=== PATIENT | female | born 1930 | race Caucasian/White ===

== ENCOUNTER 2019-09-12 21:11 | Inpatient (IN) ==
[2019-09-13] MEDS ORDERED: *HR* Heparin 5,000 UNIT/ML VIAL IVP PRN ×4 (00:49→10:55)
[2019-09-13] MEDS ORDERED: *HR* Heparin 5,000 UNIT/ML VIAL IVP ONE ×2 (00:49→10:55)
[2019-09-13] MEDS ORDERED: Heparin 25,000 UNIT/250 ML D5W 25,000 UNIT/250 ML IV.SOLN IVC SCH (01:15)
[2019-09-13 01:50] LABS: Hematocrit 34.9 % (35.3-44.9); Hemoglobin 11.7 g/dL (11.5-15.4); Mean Corpuscular HGB Conc 33.5 g/dL (31.6-35.5); Mean Corpuscular Volume 92.3 fL (83.0-100.0); Mean Platelet Volume 9.9 fL (9.4-12.4); Platelet Count 333 K/mcL (140-400); Red Blood Count 3.78 M/mcL (3.82-4.97); Red Cell Distribution Width 13.3 % (11.5-14.5); White Blood Count 11.3 K/mcL (4.3-11.1)
[2019-09-13 02:18] LABS: INR 1.1
[2019-09-13 02:19] LABS: Heparin anti-factor XA UFH < 0.04 IU/mL (0.30-0.70)
[2019-09-13] MEDS ORDERED: Naloxone 0.4 MG/ML INJ IVP PRN (02:26)
[2019-09-13 04:54] LABS: Basophils # 0.1 K/mcL (0.0-0.2); Eosinophils # 0.3 K/mcL (0.0-0.6); Eosinophils % 2.6 %; Hematocrit 35.4 % (35.3-44.9); Hemoglobin 11.6 g/dL (11.5-15.4); Immature Granulocytes % 0.4 % (0-4); Lymphocytes # 2.1 K/mcL (0.6-4.6); Lymphocytes % 21.4 %; Mean Corpuscular HGB Conc 32.8 g/dL (31.6-35.5); Mean Corpuscular Hemoglobin 30.1 pg (28.0-33.3); Mean Corpuscular Volume 91.7 fL (83.0-100.0); Mean Platelet Volume 9.3 fL (9.4-12.4); Monocytes # 1.1 K/mcL (0.0-1.3); Neutrophils # 6.3 K/mcL (1.6-8.9); Platelet Count 321 K/mcL (140-400); Red Blood Count 3.86 M/mcL (3.82-4.97); Red Cell Distribution Width 13.5 % (11.5-14.5); Segmented Neutrophils % 63.6 %; White Blood Count 9.8 K/mcL (4.3-11.1)
[2019-09-13 05:02] LABS: INR 1.1; Prothrombin Time 12.2 Seconds (9.4-12.1)
[2019-09-13 05:22] LABS: BUN/Creatinine Ratio 13 (6-26); Blood Urea Nitrogen 11 mg/dL (8-23); Calcium 8.7 mg/dL (8.6-10.3); Carbon Dioxide 32 mEq/L (23-29); Chloride 100 mEq/L (98-107); Chol/HDL Ratio 4.4 (0-4.9); Cholesterol 173 mg/dL (< 200); Glucose 116 mg/dL (70-105); HDL Cholesterol 39 mg/dL (40-59); LDL Cholesterol,Calculated 100 mg/dL (0-99); Magnesium 1.7 mg/dL (1.6-2.6); Osmolality,Calculated 286 (280-300); Phosphorous 3.3 mg/dL (2.7-4.5); Potassium 3.8 mEq/L (3.5-5.1); Sodium 138 mEq/L (136-145); Triglycerides 170 mg/dL (< 150); eGFR For African Americans > 60 (> 60); eGFR For Non-African Americans > 60 (> 60)
[2019-09-13] MEDS: Vancomycin Oral Soln 125 MG/2.5 ML UDC PO SCH ×4 (07:55→17:56)
[2019-09-13] MEDS ORDERED: Furosemide 20 MG/2 ML VIAL IVP SCH (09:00)
[2019-09-13] MEDS ORDERED: Perflutren Lipid Microsphere 1.3 ML in 0.9 % Sodium Chloride 8.7 ML IVP ONE (10:40)
[2019-09-13] MEDS ORDERED: Amiodarone Premix 150 MG/100 ML BAG IVPB ONE (10:53)
[2019-09-13] MEDS ORDERED: Amiodarone Premix 360 MG/200 ML BAG IVC ONE (10:53)
[2019-09-13] MEDS: Aspirin Enteric Coated 81 MG Tablet PO SCH (11:26)
[2019-09-13] MEDS: Ondansetron 4 MG/2 ML VIAL IVP PRN ×2 (13:11→23:16)
[2019-09-13] MEDS: Heparin 25,000 UNIT/250 ML D5W 25,000 UNIT/250 ML IV.SOLN IVC SCH (13:13)
[2019-09-13] MEDS: Furosemide 40 MG/4 ML VIAL IVP SCH ×2 (13:21→17:56)
[2019-09-13] MEDS: Amiodarone Premix 360 MG/200 ML BAG IVC SCH (20:29)
[2019-09-14] MEDS: Vancomycin Oral Soln 125 MG/2.5 ML UDC PO SCH ×4 (00:23→20:40)
[2019-09-14 02:30] LABS: Hematocrit 38.9 % (35.3-44.9); Hemoglobin 12.8 g/dL (11.5-15.4); Mean Corpuscular HGB Conc 32.9 g/dL (31.6-35.5); Mean Corpuscular Volume 94.2 fL (83.0-100.0); Platelet Count 334 K/mcL (140-400); Red Blood Count 4.13 M/mcL (3.82-4.97); Red Cell Distribution Width 13.7 % (11.5-14.5); White Blood Count 10.5 K/mcL (4.3-11.1)
[2019-09-14 02:49] LABS: BUN/Creatinine Ratio 9 (6-26); Blood Urea Nitrogen 9 mg/dL (8-23); Calcium 9.5 mg/dL (8.6-10.3); Carbon Dioxide 28 mEq/L (23-29); Chloride 99 mEq/L (98-107); Glucose 144 mg/dL (70-105); Osmolality,Calculated 283 (280-300); Potassium 3.9 mEq/L (3.5-5.1); Sodium 136 mEq/L (136-145); eGFR For African Americans > 60 (> 60); eGFR For Non-African Americans 54 (> 60)
[2019-09-14] MEDS: Amiodarone Premix 360 MG/200 ML BAG IVC SCH (08:03)
[2019-09-14] MEDS: Lactobacillus 1 EACH CAP.SPRINK PO SCH (08:05)
[2019-09-14] MEDS: Aspirin Enteric Coated 81 MG Tablet PO SCH (08:05)
[2019-09-14] MEDS: Furosemide 40 MG/4 ML VIAL IVP SCH ×2 (08:10→20:39)
[2019-09-14] MEDS ORDERED: *HR* Digoxin 0.5 MG/2 ML AMPUL IVP ONE (10:00)
[2019-09-14] MEDS: Metoprolol XL (24 HR) Succ 25 MG TAB.ER.24H PO SCH (10:16)
[2019-09-14] MEDS: Cholestyramine 4 GM POWD.PACK PO SCH (15:08)
[2019-09-14] MEDS: *HR* Digoxin 0.5 MG/2 ML AMPUL IVP SCH ×2 (15:28→22:19)
[2019-09-15] MEDS: Heparin 25,000 UNIT/250 ML D5W 25,000 UNIT/250 ML IV.SOLN IVC SCH ×2 (00:01→00:53)
[2019-09-15] MEDS: Vancomycin Oral Soln 125 MG/2.5 ML UDC PO SCH ×4 (00:53→20:09)
[2019-09-15] MEDS: Ondansetron 4 MG/2 ML VIAL IVP PRN (01:12)
[2019-09-15 06:52] LABS: Hematocrit 47.8 % (35.3-44.9); Mean Corpuscular HGB Conc 31.2 g/dL (31.6-35.5); Mean Corpuscular Volume 96.4 fL (83.0-100.0); Mean Platelet Volume 9.7 fL (9.4-12.4); Platelet Count 429 K/mcL (140-400); Red Blood Count 4.96 M/mcL (3.82-4.97); Red Cell Distribution Width 13.5 % (11.5-14.5); White Blood Count 11.2 K/mcL (4.3-11.1)
[2019-09-15 06:53] LABS: Hemoglobin 14.9 g/dL (11.5-15.4)
[2019-09-15 07:09] LABS: Calcium 10.1 mg/dL (8.6-10.3); Potassium 5.3 mEq/L (3.5-5.1)
[2019-09-15] MEDS: Cholestyramine 4 GM POWD.PACK PO SCH ×2 (07:46→16:00)
[2019-09-15] MEDS: Furosemide 40 MG/4 ML VIAL IVP SCH (07:48)
[2019-09-15] MEDS: Lactobacillus 1 EACH CAP.SPRINK PO SCH (08:46)
[2019-09-15] MEDS: Aspirin Enteric Coated 81 MG Tablet PO SCH (08:46)
[2019-09-15] MEDS: Metoprolol XL (24 HR) Succ 25 MG TAB.ER.24H PO SCH (08:46)
[2019-09-16 00:44] LABS: Hematocrit 44.3 % (35.3-44.9); Hemoglobin 13.8 g/dL (11.5-15.4); Mean Corpuscular HGB Conc 31.2 g/dL (31.6-35.5); Mean Corpuscular Hemoglobin 29.9 pg (28.0-33.3); Mean Corpuscular Volume 95.9 fL (83.0-100.0); Mean Platelet Volume 10.2 fL (9.4-12.4); Platelet Count 422 K/mcL (140-400); Red Blood Count 4.62 M/mcL (3.82-4.97); Red Cell Distribution Width 13.5 % (11.5-14.5); White Blood Count 12.9 K/mcL (4.3-11.1)
[2019-09-16] MEDS: Vancomycin Oral Soln 125 MG/2.5 ML UDC PO SCH ×5 (00:45→23:19)
[2019-09-16 00:58] LABS: Calcium 9.7 mg/dL (8.6-10.3)
[2019-09-16] MEDS: Cholestyramine 4 GM POWD.PACK PO SCH ×2 (07:48→15:30)
[2019-09-16] MEDS: Lactobacillus 1 EACH CAP.SPRINK PO SCH (07:54)
[2019-09-16] MEDS: Aspirin Enteric Coated 81 MG Tablet PO SCH (07:54)
[2019-09-16] MEDS: Metoprolol XL (24 HR) Succ 25 MG TAB.ER.24H PO SCH (07:54)
[2019-09-16] MEDS ORDERED: Furosemide 40 MG/4 ML VIAL IVP SCH (09:00)
[2019-09-16] MEDS ORDERED: Nitroglycerin 1,000 MCG/10 ML VIAL IV ONE (09:45)
[2019-09-16] MEDS ORDERED: *HR* Heparin 10,000 UNIT/10 ML VIAL ONE (09:45)
[2019-09-16] MEDS ORDERED: 0.9 % Sodium Chloride 1,000 ML ONE ×2 (09:45→10:06)
[2019-09-16] MEDS ORDERED: Heparin 1,000 UNITS/500 mL 500 ML ONE (09:45)
[2019-09-16] MEDS ORDERED: ISOVUE-370 200 ML INFUS..BTL ONE (09:45)
[2019-09-16] MEDS ORDERED: *HR* Midazolam HCl 2 MG/2 ML VIAL ONE (10:13)
[2019-09-16] MEDS: Apixaban 5 MG TABLET PO SCH (20:34)
[2019-09-17 00:56] LABS: Hematocrit 38.2 % (35.3-44.9); Hemoglobin 12.5 g/dL (11.5-15.4); Mean Corpuscular HGB Conc 32.7 g/dL (31.6-35.5); Mean Corpuscular Hemoglobin 30.9 pg (28.0-33.3); Mean Corpuscular Volume 94.6 fL (83.0-100.0); Mean Platelet Volume 9.6 fL (9.4-12.4); Platelet Count 320 K/mcL (140-400); Red Blood Count 4.04 M/mcL (3.82-4.97); Red Cell Distribution Width 13.5 % (11.5-14.5)
[2019-09-17 01:13] LABS: BUN/Creatinine Ratio 18 (6-26); Blood Urea Nitrogen 16 mg/dL (8-23); Calcium 9.3 mg/dL (8.6-10.3); Carbon Dioxide 23 mEq/L (23-29); Chloride 105 mEq/L (98-107); Glucose 103 mg/dL (70-105); Osmolality,Calculated 279 (280-300); Potassium 4.7 mEq/L (3.5-5.1); Sodium 134 mEq/L (136-145); eGFR For African Americans > 60 (> 60); eGFR For Non-African Americans > 60 (> 60)
[2019-09-17] MEDS: Vancomycin Oral Soln 125 MG/2.5 ML UDC PO SCH ×3 (06:20→19:02)
[2019-09-17] MEDS: Cholestyramine 4 GM POWD.PACK PO SCH ×2 (08:00→16:26)
[2019-09-17] MEDS: Apixaban 5 MG TABLET PO SCH ×2 (08:02→19:52)
[2019-09-17] MEDS: Lactobacillus 1 EACH CAP.SPRINK PO SCH (08:05)
[2019-09-17] MEDS: Metoprolol XL (24 HR) Succ 25 MG TAB.ER.24H PO SCH (08:06)
[2019-09-17] MEDS: Aspirin Enteric Coated 81 MG Tablet PO SCH (08:06)
[2019-09-17] MEDS ORDERED: lisinopriL 5 MG TABLET PO SCH (09:00)
[2019-09-17] MEDS: Acetaminophen 325 MG TABLET PO PRN (19:06)
[2019-09-18] MEDS: Vancomycin Oral Soln 125 MG/2.5 ML UDC PO SCH ×4 (01:43→18:56)
[2019-09-18 05:15] LABS: Hematocrit 37.8 % (35.3-44.9); Hemoglobin 12.4 g/dL (11.5-15.4); Mean Corpuscular HGB Conc 32.8 g/dL (31.6-35.5); Mean Corpuscular Hemoglobin 31.2 pg (28.0-33.3); Mean Corpuscular Volume 95.2 fL (83.0-100.0); Mean Platelet Volume 9.9 fL (9.4-12.4); Platelet Count 315 K/mcL (140-400); Red Blood Count 3.97 M/mcL (3.82-4.97); Red Cell Distribution Width 13.8 % (11.5-14.5); White Blood Count 9.7 K/mcL (4.3-11.1)
[2019-09-18 05:33] LABS: BUN/Creatinine Ratio 19 (6-26); Blood Urea Nitrogen 16 mg/dL (8-23); Calcium 9.5 mg/dL (8.6-10.3); Carbon Dioxide 19 mEq/L (23-29); Chloride 105 mEq/L (98-107); Glucose 117 mg/dL (70-105); Osmolality,Calculated 286 (280-300); Potassium 4.8 mEq/L (3.5-5.1); Sodium 137 mEq/L (136-145); eGFR For African Americans > 60 (> 60); eGFR For Non-African Americans > 60 (> 60)
[2019-09-18] MEDS: Cholestyramine 4 GM POWD.PACK PO SCH ×2 (06:11→15:12)
[2019-09-18] MEDS: Lactobacillus 1 EACH CAP.SPRINK PO SCH (07:23)
[2019-09-18] MEDS: lisinopriL 5 MG TABLET PO SCH (07:23)
[2019-09-18] MEDS: Aspirin Enteric Coated 81 MG Tablet PO SCH (07:23)
[2019-09-18] MEDS: Furosemide 20 MG TABLET PO SCH (07:23)
[2019-09-18] MEDS: Metoprolol XL (24 HR) Succ 25 MG TAB.ER.24H PO SCH (07:23)
[2019-09-18] MEDS: Apixaban 5 MG TABLET PO SCH ×2 (07:23→19:59)
[2019-09-18] MEDS: Heparin 25,000 UNIT/250 ML D5W 25,000 UNIT/250 ML IV.SOLN IVC SCH (08:24)
[2019-09-18] MEDS: Acetaminophen 325 MG TABLET PO PRN ×2 (11:04→21:38)
[2019-09-18] MEDS ORDERED: SODIUM CHLORIDE/NAHCO3/KCL/PEG 4,000 ML SOLN.RECON PO ONE (17:00)
[2019-09-18] MEDS: Ondansetron 4 MG/2 ML VIAL IVP PRN (18:44)
[2019-09-19] MEDS: Vancomycin Oral Soln 125 MG/2.5 ML UDC PO SCH ×4 (00:12→20:13)
[2019-09-19 01:16] LABS: Basophils # 0.1 K/mcL (0.0-0.2); Basophils % 0.8 %; Eosinophils # 0.2 K/mcL (0.0-0.6); Eosinophils % 2.2 %; Hematocrit 40.3 % (35.3-44.9); Hemoglobin 13.1 g/dL (11.5-15.4); Immature Granulocytes % 0.5 % (0-4); Lymphocytes # 2.1 K/mcL (0.6-4.6); Lymphocytes % 20.4 %; Mean Corpuscular HGB Conc 32.5 g/dL (31.6-35.5); Mean Corpuscular Hemoglobin 30.5 pg (28.0-33.3); Mean Corpuscular Volume 93.7 fL (83.0-100.0); Mean Platelet Volume 9.7 fL (9.4-12.4); Monocytes # 0.9 K/mcL (0.0-1.3); Monocytes % 8.7 %; Neutrophils # 6.9 K/mcL (1.6-8.9); Platelet Count 365 K/mcL (140-400); Red Cell Distribution Width 13.7 % (11.5-14.5); Segmented Neutrophils % 67.4 %; White Blood Count 10.3 K/mcL (4.3-11.1)
[2019-09-19 01:34] LABS: BUN/Creatinine Ratio 15 (6-26); Blood Urea Nitrogen 15 mg/dL (8-23); Carbon Dioxide 20 mEq/L (23-29); Chloride 104 mEq/L (98-107); Glucose 113 mg/dL (70-105); Osmolality,Calculated 280 (280-300); Potassium 4.3 mEq/L (3.5-5.1); Sodium 134 mEq/L (136-145); eGFR For African Americans > 60 (> 60); eGFR For Non-African Americans 52 (> 60)
[2019-09-19] MEDS: Cholestyramine 4 GM POWD.PACK PO SCH ×2 (07:41→16:00)
[2019-09-19] MEDS: Lactobacillus 1 EACH CAP.SPRINK PO SCH (07:41)
[2019-09-19] MEDS: Aspirin Enteric Coated 81 MG Tablet PO SCH (07:41)
[2019-09-19] MEDS: Apixaban 5 MG TABLET PO SCH ×2 (07:42→20:13)
[2019-09-19] MEDS: lisinopriL 5 MG TABLET PO SCH (07:42)
[2019-09-19] MEDS: Furosemide 20 MG TABLET PO SCH (07:42)
[2019-09-19] MEDS: Metoprolol XL (24 HR) Succ 25 MG TAB.ER.24H PO SCH (07:55)
[2019-09-19] MEDS ORDERED: *HR* Metoprolol 5 MG/5 ML VIAL IVP ONE (11:07)
[2019-09-19] MEDS ORDERED: Lidocaine -MPF 2% 2 ML VIAL ONE (11:07)
[2019-09-19] MEDS: Acetaminophen 325 MG TABLET PO PRN (20:13)
[2019-09-20] MEDS: Vancomycin Oral Soln 125 MG/2.5 ML UDC PO SCH ×2 (01:04→06:19)
[2019-09-20 04:56] LABS: Hemoglobin 13.3 g/dL (11.5-15.4); Mean Corpuscular HGB Conc 33.3 g/dL (31.6-35.5); Mean Corpuscular Hemoglobin 31.4 pg (28.0-33.3); Mean Corpuscular Volume 94.6 fL (83.0-100.0); Mean Platelet Volume 9.7 fL (9.4-12.4); Platelet Count 356 K/mcL (140-400); Red Blood Count 4.23 M/mcL (3.82-4.97); Red Cell Distribution Width 13.9 % (11.5-14.5); White Blood Count 9.6 K/mcL (4.3-11.1)
[2019-09-20 05:12] LABS: BUN/Creatinine Ratio 23 (6-26); Blood Urea Nitrogen 23 mg/dL (8-23); Calcium 9.7 mg/dL (8.6-10.3); Carbon Dioxide 21 mEq/L (23-29); Chloride 107 mEq/L (98-107); Glucose 116 mg/dL (70-105); Osmolality,Calculated 283 (280-300); Potassium 4.8 mEq/L (3.5-5.1); Sodium 134 mEq/L (136-145); eGFR For African Americans > 60 (> 60); eGFR For Non-African Americans 53 (> 60)
[2019-09-20] MEDS: Cholestyramine 4 GM POWD.PACK PO SCH (07:34)
[2019-09-20] MEDS: lisinopriL 5 MG TABLET PO SCH (08:44)
[2019-09-20] MEDS: Aspirin Enteric Coated 81 MG Tablet PO SCH (08:44)
[2019-09-20] MEDS: Apixaban 5 MG TABLET PO SCH (08:45)
[2019-09-20] MEDS: Lactobacillus 1 EACH CAP.SPRINK PO SCH (08:45)
[2019-09-20] MEDS: Furosemide 20 MG TABLET PO SCH (08:45)
[2019-09-20] MEDS ORDERED: Metoprolol XL (24 HR) Succ 25 MG TAB.ER.24H PO SCH (09:00)
[2019-09-20] MEDS ORDERED: Spironolactone 25 MG TABLET PO SCH (09:30)
[2019-09-20] MEDS: Acetaminophen 325 MG TABLET PO PRN (09:49)
[2019-09-20 11:00] VITALS: BP 110/76
== END 2019-09-20 15:30 | disposition home or self-care (01) | DRG 280 ==
LOC: 2ANU → SUATTDRO 22:25 → 3NENU 09-13 12:05 → SUATTDRO 09-13 13:30
PROVIDERS: ADMIT Student in an Organized Health Care Education/Training Program; ATTEND Internal Medicine
PROC: ENDOCBX (2019-09-19 11:50)

== ENCOUNTER 2019-10-03 16:26 | Inpatient (IN) ==
[2019-10-03 17:12] LABS: Basophils # 0.1 K/mcL (0.0-0.2); Basophils % 0.4 %; Eosinophils # 0.1 K/mcL (0.0-0.6); Eosinophils % 0.6 %; Hematocrit 41.3 % (35.3-44.9); Hemoglobin 13.5 g/dL (11.5-15.4); Immature Granulocytes % 0.7 % (0-4); Lymphocytes # 2.2 K/mcL (0.6-4.6); Lymphocytes % 15.4 %; Mean Corpuscular HGB Conc 32.7 g/dL (31.6-35.5); Mean Corpuscular Hemoglobin 31.1 pg (28.0-33.3); Mean Corpuscular Volume 95.2 fL (83.0-100.0); Mean Platelet Volume 10.3 fL (9.4-12.4); Monocytes # 1.2 K/mcL (0.0-1.3); Monocytes % 8.4 %; Neutrophils # 10.6 K/mcL (1.6-8.9); Platelet Count 346 K/mcL (140-400); Red Blood Count 4.34 M/mcL (3.82-4.97); Red Cell Distribution Width 13.9 % (11.5-14.5); Segmented Neutrophils % 74.5 %; White Blood Count 14.2 K/mcL (4.3-11.1)
[2019-10-03 17:15] LABS: INR 1.3; Prothrombin Time 14.6 Seconds (9.4-12.1)
[2019-10-03 17:17] LABS: Activated Partial Thrombo Time 30.9 Seconds (26.0-36.0)
[2019-10-03 17:33] LABS: Calcium 9.4 mg/dL (8.6-10.3); Potassium 4.8 mEq/L (3.5-5.1)
[2019-10-03 17:37] LABS: Troponin I 0.05 ng/mL (< 0.04)
[2019-10-03] MEDS ORDERED: Naloxone 0.4 MG/ML INJ IVP PRN (18:05)
[2019-10-03] MEDS: DilTIAZem 50 MG in 0.9 % Sodium Chloride 40 ML IVC SCH (18:21)
[2019-10-03 20:37] LABS: Thyroid Stimulating Hormone 5.039 mcIU/mL (0.340-5.600)
[2019-10-03] MEDS: Apixaban 2.5 MG TABLET PO SCH (20:40)
[2019-10-04 02:44] LABS: Basophils % 0.2 %; Eosinophils % 0.1 %; Hematocrit 38.6 % (35.3-44.9); Hemoglobin 12.4 g/dL (11.5-15.4); Immature Granulocytes % 0.8 % (0-4); Lymphocytes # 1.7 K/mcL (0.6-4.6); Lymphocytes % 12.6 %; Mean Corpuscular HGB Conc 32.1 g/dL (31.6-35.5); Mean Corpuscular Hemoglobin 30.8 pg (28.0-33.3); Monocytes # 0.8 K/mcL (0.0-1.3); Neutrophils # 10.7 K/mcL (1.6-8.9); Platelet Count 307 K/mcL (140-400); Red Blood Count 4.02 M/mcL (3.82-4.97); Red Cell Distribution Width 13.8 % (11.5-14.5); Segmented Neutrophils % 80.3 %; White Blood Count 13.3 K/mcL (4.3-11.1)
[2019-10-04 03:04] LABS: BUN/Creatinine Ratio 25 (6-26); Blood Urea Nitrogen 25 mg/dL (8-23); Calcium 9.1 mg/dL (8.6-10.3); Carbon Dioxide 26 mEq/L (23-29); Chloride 98 mEq/L (98-107); Glucose 123 mg/dL (70-105); Osmolality,Calculated 284 (280-300); Potassium 4.5 mEq/L (3.5-5.1); Sodium 134 mEq/L (136-145); eGFR For African Americans > 60 (> 60); eGFR For Non-African Americans 53 (> 60)
[2019-10-04] MEDS: DilTIAZem 50 MG in 0.9 % Sodium Chloride 40 ML IVC SCH (03:19)
[2019-10-04] MEDS ORDERED: Furosemide 20 MG/2 ML VIAL IVP ONE ×2 (08:12→17:00)
[2019-10-04 08:21] LABS: Estimated Average Glucose 123 mg/dl
[2019-10-04] MEDS: Aspirin 81 MG TAB.CHEW PO SCH (08:33)
[2019-10-04] MEDS: Famotidine 20 MG TABLET PO SCH (08:33)
[2019-10-04] MEDS: Apixaban 2.5 MG TABLET PO SCH ×2 (08:33→20:21)
[2019-10-04] MEDS ORDERED: Spironolactone 25 MG TABLET PO SCH (09:00)
[2019-10-04] MEDS ORDERED: lisinopriL 5 MG TABLET PO SCH (09:00)
[2019-10-04] MEDS ORDERED: Metoprolol XL (24 HR) Succ 50 MG TAB.ER.24H PO SCH (09:00)
[2019-10-04] MEDS: *HR* Metoprolol 5 MG/5 ML VIAL IVP PRN ×2 (17:19→23:57)
[2019-10-04 22:28] LABS: Bilirubin,Urine Negative (Negative); Blood,Urine Negative (Negative); Clarity,Urine Clear (Clear); Color,Urine Yellow (Yellow); Glucose,Urine (UA) Normal (Normal); Ketones,Urine Negative (Negative); Leukocyte Esterase,Urine Moderate (Negative); Nitrite,Urine Negative (Negative); PH,Urine 6.5 pH Units (5.0-8.0); Protein,Urine Negative (Neg-Trace); Specific Gravity,Urine 1.013 (1.010-1.025); Urobilinogen,Urine Normal (Normal)
[2019-10-04 23:01] LABS: Squamous Epithelial Cell,Urine Few per lpf (None-Few)
[2019-10-04 23:02] LABS: Transitional Epi Cells,Urine Few per hpf (None-Few)
[2019-10-04 23:03] LABS: WBC,Urine 0-3 per hpf (0-3)
[2019-10-05] MEDS: *HR* Metoprolol 5 MG/5 ML VIAL IVP PRN ×3 (05:58→23:10)
[2019-10-05 06:53] LABS: Hemoglobin 13.9 g/dL (11.5-15.4); Mean Corpuscular HGB Conc 32.3 g/dL (31.6-35.5); Mean Corpuscular Hemoglobin 30.7 pg (28.0-33.3); Mean Corpuscular Volume 94.9 fL (83.0-100.0); Mean Platelet Volume 10.1 fL (9.4-12.4); Platelet Count 325 K/mcL (140-400); Red Blood Count 4.53 M/mcL (3.82-4.97); Red Cell Distribution Width 13.8 % (11.5-14.5); White Blood Count 15.2 K/mcL (4.3-11.1)
[2019-10-05 07:13] LABS: Calcium 9.3 mg/dL (8.6-10.3); Potassium 4.1 mEq/L (3.5-5.1)
[2019-10-05] MEDS: Famotidine 20 MG TABLET PO SCH (07:47)
[2019-10-05] MEDS: Apixaban 2.5 MG TABLET PO SCH ×2 (07:47→22:02)
[2019-10-05] MEDS: Lactobacillus 1 EACH CAP.SPRINK PO SCH (07:48)
[2019-10-05] MEDS: Aspirin 81 MG TAB.CHEW PO SCH (07:48)
[2019-10-05] MEDS ORDERED: Metoprolol XL (24 HR) Succ 50 MG TAB.ER.24H PO SCH (09:00)
[2019-10-05] MEDS ORDERED: Metoprolol XL (24 HR) Succ 50 MG TAB.ER.24H PO ONE (09:30)
[2019-10-05] MEDS: BUDESONIDE 9 MG PO SCH (12:04)
[2019-10-05] MEDS ORDERED: Ringers Solution, Lactated 500 ML IV SCH (16:15)
[2019-10-05] MEDS ORDERED: *HR* Digoxin 0.5 MG/2 ML AMPUL IVP ONE (17:47)
[2019-10-05] MEDS: Metoprolol XL (24 HR) Succ 50 MG TAB.ER.24H PO SCH (22:01)
[2019-10-06 01:41] LABS: Basophils # 0.1 K/mcL (0.0-0.2); Basophils % 0.5 %; Eosinophils # 0.1 K/mcL (0.0-0.6); Eosinophils % 0.8 %; Hematocrit 37.7 % (35.3-44.9); Hemoglobin 12.5 g/dL (11.5-15.4); Immature Granulocytes % 0.5 % (0-4); Lymphocytes # 1.6 K/mcL (0.6-4.6); Lymphocytes % 12.1 %; Mean Corpuscular HGB Conc 33.2 g/dL (31.6-35.5); Mean Corpuscular Hemoglobin 31.6 pg (28.0-33.3); Mean Corpuscular Volume 95.2 fL (83.0-100.0); Monocytes # 0.7 K/mcL (0.0-1.3); Monocytes % 5.2 %; Neutrophils # 10.6 K/mcL (1.6-8.9); Platelet Count 255 K/mcL (140-400); Red Blood Count 3.96 M/mcL (3.82-4.97); Red Cell Distribution Width 13.5 % (11.5-14.5); Segmented Neutrophils % 80.9 %; White Blood Count 13.1 K/mcL (4.3-11.1)
[2019-10-06 01:51] LABS: Calcium 8.8 mg/dL (8.6-10.3); Potassium 4.6 mEq/L (3.5-5.1)
[2019-10-06] MEDS: Lactobacillus 1 EACH CAP.SPRINK PO SCH (08:14)
[2019-10-06] MEDS: Apixaban 2.5 MG TABLET PO SCH ×2 (08:14→19:52)
[2019-10-06] MEDS: Famotidine 20 MG TABLET PO SCH (08:14)
[2019-10-06] MEDS: Metoprolol XL (24 HR) Succ 50 MG TAB.ER.24H PO SCH ×2 (08:14→19:51)
[2019-10-06] MEDS: Aspirin 81 MG TAB.CHEW PO SCH (08:14)
[2019-10-06] MEDS: BUDESONIDE 9 MG PO SCH (08:15)
[2019-10-06] MEDS ORDERED: *HR* Digoxin 0.5 MG/2 ML AMPUL IVP ONE (09:00)
[2019-10-06] MEDS: Cefepime HCl 1,000 MG in Water for inj. (sterile) 10 ML IVP SCH ×2 (11:37→19:52)
[2019-10-07 01:53] LABS: Hematocrit 37.9 % (35.3-44.9); Hemoglobin 12.3 g/dL (11.5-15.4); Mean Corpuscular HGB Conc 32.5 g/dL (31.6-35.5); Mean Corpuscular Hemoglobin 30.6 pg (28.0-33.3); Mean Corpuscular Volume 94.3 fL (83.0-100.0); Mean Platelet Volume 10.1 fL (9.4-12.4); Platelet Count 255 K/mcL (140-400); Red Blood Count 4.02 M/mcL (3.82-4.97); Red Cell Distribution Width 13.3 % (11.5-14.5); White Blood Count 11.4 K/mcL (4.3-11.1)
[2019-10-07 02:06] LABS: BUN/Creatinine Ratio 22 (6-26); Blood Urea Nitrogen 22 mg/dL (8-23); Calcium 8.7 mg/dL (8.6-10.3); Carbon Dioxide 27 mEq/L (23-29); Chloride 100 mEq/L (98-107); Glucose 132 mg/dL (70-105); Osmolality,Calculated 281 (280-300); Potassium 4.2 mEq/L (3.5-5.1); Sodium 133 mEq/L (136-145); eGFR For African Americans > 60 (> 60); eGFR For Non-African Americans 52 (> 60)
[2019-10-07] MEDS: Metoprolol XL (24 HR) Succ 50 MG TAB.ER.24H PO SCH ×2 (07:34→20:01)
[2019-10-07] MEDS: Lactobacillus 1 EACH CAP.SPRINK PO SCH (07:34)
[2019-10-07] MEDS: Apixaban 2.5 MG TABLET PO SCH ×2 (07:34→20:01)
[2019-10-07] MEDS: Famotidine 20 MG TABLET PO SCH (07:34)
[2019-10-07] MEDS: Aspirin 81 MG TAB.CHEW PO SCH (07:35)
[2019-10-07] MEDS: *HR* Digoxin 0.125 MG TABLET PO SCH (07:35)
[2019-10-07] MEDS: Cefepime HCl 1,000 MG in Water for inj. (sterile) 10 ML IVP SCH ×2 (07:35→20:02)
[2019-10-07] MEDS: BUDESONIDE 9 MG PO SCH (07:36)
[2019-10-08 06:50] VITALS: BP 112/64
[2019-10-08] MEDS: Aspirin 81 MG TAB.CHEW PO SCH (07:37)
[2019-10-08] MEDS: Famotidine 20 MG TABLET PO SCH (07:37)
[2019-10-08] MEDS: Metoprolol XL (24 HR) Succ 50 MG TAB.ER.24H PO SCH (07:37)
[2019-10-08] MEDS: Lactobacillus 1 EACH CAP.SPRINK PO SCH (07:38)
[2019-10-08] MEDS: Apixaban 2.5 MG TABLET PO SCH (07:38)
[2019-10-08] MEDS: *HR* Digoxin 0.125 MG TABLET PO SCH (07:38)
[2019-10-08] MEDS: Cefepime HCl 1,000 MG in Water for inj. (sterile) 10 ML IVP SCH (07:38)
[2019-10-08] MEDS: BUDESONIDE 9 MG PO SCH (07:39)
== END 2019-10-08 11:24 | disposition home or self-care (01) | DRG 871 ==
LOC: EMEROOARM 16:26 → 2ANU 16:26 → SUATTDRO 10-04 12:48
PROVIDERS: ADMIT Internal Medicine; ATTEND Internal Medicine

== ENCOUNTER 2020-12-31 18:35 | Inpatient (IN) ==
[2020-12-31] MEDS ORDERED: Heparin 1,000 UNITS/500 mL 500 ML ONE ×2 (21:50→22:49)
[2020-12-31] MEDS ORDERED: *HR* Heparin 10,000 UNIT/10 ML VIAL ONE (21:50)
[2020-12-31] MEDS ORDERED: 0.9 % Sodium Chloride 1,000 ML ONE ×2 (21:50→21:56)
[2020-12-31] MEDS ORDERED: ISOVUE-370 200 ML INFUS..BTL ONE ×2 (21:50→22:20)
[2020-12-31] MEDS ORDERED: Nitroglycerin 1,000 MCG/5 ML VIAL IV ONE (21:50)
[2020-12-31] MEDS ORDERED: *HR* Midazolam HCl 2 MG/2 ML VIAL ONE (22:05)
[2020-12-31] MEDS ORDERED: *HR* FentaNYL (PF) 100 MCG/2 ML VIAL ONE (22:05)
[2020-12-31] MEDS ORDERED: Tirofiban 12.5 MG/250ML 12.5 MG/250 ML BAG ONE (22:16)
[2020-12-31] MEDS ORDERED: Furosemide 40 MG/4 ML VIAL ONE (22:20)
[2020-12-31] MEDS ORDERED: Amiodarone Premix 150 MG/100 ML BAG IVPB ONE (23:00)
[2020-12-31] MEDS ORDERED: *HR* Ticagrelor 90 MG TABLET ONE (23:13)
[2020-12-31] MEDS ORDERED: Tirofiban 12.5 MG/250ML 12.5 MG/250 ML BAG IVC SCH (23:15)
[2020-12-31] MEDS ORDERED: Aspirin 325 MG TABLET ONE (23:16)
[2021-01-01] MEDS: Tirofiban 12.5 MG/250ML 12.5 MG/250 ML BAG IVC SCH ×2 (00:27→22:36)
[2021-01-01 05:34] LABS: Basophils # 0.1 K/mcL (0.0-0.2); Basophils % 0.5 %; Eosinophils # 0.1 K/mcL (0.0-0.6); Eosinophils % 0.8 %; Hematocrit 35.7 % (35.3-44.9); Hemoglobin 11.7 g/dL (11.5-15.4); Immature Granulocytes % 0.3 % (0-4); Lymphocytes # 1.8 K/mcL (0.6-4.6); Lymphocytes % 16.6 %; Mean Corpuscular HGB Conc 32.8 g/dL (31.6-35.5); Mean Corpuscular Hemoglobin 31.2 pg (28.0-33.3); Mean Corpuscular Volume 95.2 fL (83.0-100.0); Mean Platelet Volume 10.1 fL (9.4-12.4); Monocytes % 9.7 %; Neutrophils # 7.6 K/mcL (1.6-8.9); Platelet Count 242 K/mcL (140-400); Red Blood Count 3.75 M/mcL (3.82-4.97); Red Cell Distribution Width 13.6 % (11.5-14.5); Segmented Neutrophils % 72.1 %; White Blood Count 10.6 K/mcL (4.3-11.1)
[2021-01-01 05:47] LABS: Calcium 9.3 mg/dL (8.6-10.3); Potassium 4.5 mEq/L (3.5-5.1)
[2021-01-01] MEDS ORDERED: *HR* Metoprolol 5 MG/5 ML VIAL IVP ONE (06:01)
[2021-01-01] MEDS ORDERED: Perflutren Lipid Microsphere 1.3 ML in 0.9 % Sodium Chloride 8.7 ML IVP PRN (07:44)
[2021-01-01] MEDS: Furosemide 20 MG TABLET PO SCH ×2 (08:15→15:29)
[2021-01-01] MEDS: *HR* Ticagrelor 90 MG TABLET PO SCH ×2 (08:15→20:01)
[2021-01-01] MEDS: Aspirin Enteric Coated 81 MG Tablet PO SCH (08:15)
[2021-01-01] MEDS: Metoprolol XL (24 HR) Succ 25 MG TAB.ER.24H PO SCH (08:21)
[2021-01-01] MEDS ORDERED: *HR* Atropine Sulfate 1 MG/10 ML SYRINGE ONE (11:41)
[2021-01-02] MEDS: Metoprolol XL (24 HR) Succ 25 MG TAB.ER.24H PO SCH (08:26)
[2021-01-02] MEDS: Aspirin Enteric Coated 81 MG Tablet PO SCH (08:26)
[2021-01-02] MEDS: Furosemide 20 MG TABLET PO SCH ×2 (08:26→17:40)
[2021-01-02] MEDS: *HR* Ticagrelor 90 MG TABLET PO SCH ×2 (08:26→20:23)
[2021-01-02] MEDS ORDERED: Furosemide 20 MG/2 ML VIAL IVP ONE (13:27)
[2021-01-02] MEDS: Cholestyramine 4 GM POWD.PACK PO SCH ×2 (13:39→17:40)
[2021-01-02] MEDS ORDERED: Apixaban 2.5 MG TABLET PO SCH (21:00)
[2021-01-02] MEDS ORDERED: Metoprolol XL (24 HR) Succ 25 MG TAB.ER.24H PO SCH (21:00)
[2021-01-03 02:21] LABS: Basophils % 0.3 %; Eosinophils # 0.3 K/mcL (0.0-0.6); Eosinophils % 2.8 %; Hematocrit 32.5 % (35.3-44.9); Hemoglobin 10.6 g/dL (11.5-15.4); Immature Granulocytes % 0.4 % (0-4); Lymphocytes # 1.7 K/mcL (0.6-4.6); Lymphocytes % 15.5 %; Mean Corpuscular HGB Conc 32.6 g/dL (31.6-35.5); Mean Corpuscular Hemoglobin 31.1 pg (28.0-33.3); Mean Corpuscular Volume 95.3 fL (83.0-100.0); Mean Platelet Volume 10.1 fL (9.4-12.4); Monocytes # 1.4 K/mcL (0.0-1.3); Monocytes % 12.7 %; Neutrophils # 7.7 K/mcL (1.6-8.9); Platelet Count 205 K/mcL (140-400); Red Blood Count 3.41 M/mcL (3.82-4.97); Red Cell Distribution Width 13.8 % (11.5-14.5); Segmented Neutrophils % 68.3 %; White Blood Count 11.2 K/mcL (4.3-11.1)
[2021-01-03 02:40] LABS: Calcium 8.9 mg/dL (8.6-10.3); Potassium 4.1 mEq/L (3.5-5.1)
[2021-01-03 03:52] VITALS: BP 130/63; PULSE 63; TEMP 97.7; O2SAT 99
[2021-01-03] MEDS ORDERED: Aspirin Enteric Coated 81 MG Tablet PO SCH (09:00)
[2021-01-03] MEDS ORDERED: Metoprolol XL (24 HR) Succ 25 MG TAB.ER.24H PO SCH ×2 (09:00→21:00)
[2021-01-03] MEDS ORDERED: Spironolactone 12.5 MG TABLET PO SCH ×2 (09:00)
[2021-01-03] MEDS ORDERED: Apixaban 2.5 MG TABLET PO SCH (09:00)
[2021-01-03] MEDS ORDERED: *HR* Ticagrelor 90 MG TABLET PO SCH (09:00)
[2021-01-03] MEDS ORDERED: Famotidine 20 MG TABLET PO SCH ×2 (09:00)
[2021-01-03] MEDS ORDERED: Cholestyramine 4 GM POWD.PACK PO SCH (12:00)
[2021-01-03] MEDS ORDERED: Furosemide 20 MG TABLET PO SCH (17:00)
== END 2021-01-03 12:40 | disposition home or self-care (01) | DRG 270 ==
LOC: ICNU → OBSVTOIN 21:54 → 2NENU 01-02 18:04
PROVIDERS: ADMIT Student in an Organized Health Care Education/Training Program; ATTEND Internal Medicine Interventional Cardiology